=== PATIENT | female | born 1945 | race Caucasian/White ===

== ENCOUNTER 2016-07-23 07:31 | Outpatient (CLI) | payer MEDICARE, OTHER | END 2016-07-23 07:32 | disposition home or self-care (01) | DX: R73.01 Impaired fasting glucose (principal); I10 Essential (primary) hypertension; D64.9 Anemia, unspecified; E78.00 Pure hypercholesterolemia, unspecified ==

== ENCOUNTER 2016-07-24 10:00 | Outpatient (CLI) | payer MEDICARE, OTHER | END 2016-07-24 10:01 | disposition home or self-care (01) | DX: Z12.31 Encounter for screening mammogram for malignant neoplasm of breast (principal) ==

== ENCOUNTER 2016-08-14 17:12 | Observation (INO) | payer MEDICARE, OTHER ==
[2016-08-14] MEDS ORDERED: ASPIRIN CHEW 81 MG TABLET PO STA (17:39)
[2016-08-14] MEDS ORDERED: ASPIRIN CHEW 81 MG TABLET ONE ×2 (17:42→17:43)
[2016-08-14] MEDS ORDERED: LIDOCAINE VISCOUS 2% 15 ML UDC MM STA (18:14)
[2016-08-14] MEDS ORDERED: MAG HYDROX/AL HYDROX/SIMETH 30 ML UDC PO STA (18:14)
[2016-08-14] MEDS ORDERED: MAG HYDROX/AL HYDROX/SIMETH 30 ML UDC ONE (18:15)
[2016-08-14] MEDS ORDERED: LIDOCAINE VISCOUS 2% 15 ML UDC MM ONE (18:15)
[2016-08-14] MEDS ORDERED: AMITRIPTYLINE 10 MG TABLET PO PRN (20:41)
[2016-08-14] MEDS ORDERED: MORPHINE 2 MG/ML SYRINGE IVP PRN (20:42)
[2016-08-14] MEDS ORDERED: ACETAMINOPHEN 325 MG TABLET PO PRN (20:42)
[2016-08-14] MEDS ORDERED: HYDROcod/ACETAM 5/325 MG TABLET PO PRN (20:42)
[2016-08-14] MEDS ORDERED: ONDANSETRON 4 MG/2 ML VIAL IVP PRN (20:42)
[2016-08-14] MEDS ORDERED: PROCHLORPERAZINE 10 MG/2 ML VIAL IVP PRN (20:42)
[2016-08-14] MEDS ORDERED: SODIUM CHLORIDE FLUSH 0.9% 10 ML SYRINGE IVP PRN (20:42)
[2016-08-14] MEDS ORDERED: NITROGLYCERIN SL 0.4 MG TABLET SL PRN (20:42)
[2016-08-14] MEDS ORDERED: LATANOPROST 0.005% OPHTH DROPS EACHEYE SCH ×2 (21:00→22:17)
[2016-08-14] MEDS ORDERED: ATORVASTATIN 40 MG TABLET PO SCH (21:00)
[2016-08-14] MEDS: SODIUM CHLORIDE FLUSH 0.9% 10 ML SYRINGE IVP SCH (22:14)
[2016-08-15] MEDS: SODIUM CHLORIDE FLUSH 0.9% 10 ML SYRINGE IVP SCH (06:32)
[2016-08-15] MEDS ORDERED: PANTOPRAZOLE 40 MG TABLET PO SCH (07:00)
[2016-08-15] MEDS: INDAPAMIDE 2.5 MG TABLET PO SCH (08:14)
[2016-08-15] MEDS ORDERED: ASPIRIN EC 81 MG TABLET PO SCH (09:00)
[2016-08-15] MEDS ORDERED: LISINOPRIL 5 MG TABLET PO SCH (09:00)
[2016-08-15] MEDS ORDERED: POLYETHYLENE GLYCOL 3350 17 GM PACKET PO SCH (09:00)
[2016-08-15] MEDS ORDERED: ENOXAPARIN 40 MG/0.4 ML SYRINGE SUBQ SCH (12:00)
== END 2016-08-15 14:00 | disposition home or self-care (01) ==
DX: R07.89 Other chest pain (principal); I10 Essential (primary) hypertension; E78.5 Hyperlipidemia, unspecified; Z79.82 Long term (current) use of aspirin; Z82.49 Family history of ischemic heart disease and other diseases of the circulatory system; Z79.899 Other long term (current) drug therapy
CPT/HCPCS: 36415; 71010; 80048; 80053; 80061; 83036; 83690; 83721; 84484; 85025; 93005; 93010; 93306; 99284; 99285; A9270; G0378

== ENCOUNTER 2017-01-17 10:17 | Outpatient (CLI) | payer MEDICARE, OTHER ==
--- NOTE | 2017-01-17 12:40 | XRAY Report ---
THREE-VIEW RIGHT FOOT: 01/17/2017 CLINICAL INDICATION: Pain. FINDINGS: AP, lateral, oblique views of the right foot demonstrate moderate osteoarthritis of the fi rst metatarsophalangeal joint with hallux valgus. Osteoarthritis is also seen in the interphalangeal joints. No definite acute fracture is identified. No dislocation is seen. No foreign body is pres ent. IMPRESSION: OSTEOARTHRITIS, WITH HALLUX VALGUS. JOB #: [id number] EXT JOB #:[id number]
== END 2017-01-17 10:18 | disposition home or self-care (01) ==
LOC: DI 10:17
PROVIDERS: ATTEND Podiatrist
DX: M19.071 Primary osteoarthritis, right ankle and foot (principal); M20.11 Hallux valgus (acquired), right foot

== ENCOUNTER 2017-01-23 14:14 | Outpatient (CLI) | payer MEDICARE, OTHER ==
[2017-01-23 12:56] LABS: BASOPHILS % (AUTO) 0.9 %; EOSINOPHILS # (AUTO) 0.1 10^3/uL (0.0-0.7); EOSINOPHILS % (AUTO) 2.5 %; HCT - HEMATOCRIT 36.2 % (37.0-47.0); HGB - HEMOGLOBIN 12.5 g/dL (12.0-16.0); LYMPHOCYTES # (AUTO) 1.1 10^3/uL (1.5-3.5); MEAN CORPUSCULAR HEMOGLOBIN 33.1 pg (27.0-31.0); MEAN CORPUSCULAR HGB CONC 34.6 g/dL (32.0-36.0); MEAN CORPUSCULAR VOLUME 95.8 fL (81.0-99.0); MEAN PLATELET VOLUME 7.1 fL (7.9-10.8); MONOCYTES # (AUTO) 0.4 10^3/uL (0.0-1.0); MONOCYTES % (AUTO) 13.9 %; NEUTROPHILS # (AUTO) 1.4 10^3/uL (1.5-6.6); NEUTROPHILS % (AUTO) 45.7 %; NUCLEATED RED BLOOD CELLS AUTO 0.2 /100WBC; RED BLOOD COUNT 3.78 10^6/uL (4.20-5.40); RED CELL DISTRIBUTION WIDTH 13.9 % (12.0-15.0); UNCORRECTED WHITE BLOOD COUNT 3.1 x10^3/uL; WHITE BLOOD COUNT 3.1 x10^3/uL (4.8-10.8)
[2017-01-23 13:26] LABS: ALBUMIN/GLOBULIN RATIO 1.6 (1.0-2.2); BILIRUBIN,TOTAL 0.8 mg/dL (0.2-1.0); BUN - BLOOD UREA NITROGEN 14 mg/dL (6-20); CALCIUM 9.2 mg/dL (8.5-10.3); CARBON DIOXIDE - CO2 31 mmol/L (21-32); CHLORIDE 98 mmol/L (101-111); CHOL/HDL RATIO 2.2 (<4.4); CHOLESTEROL 232 mg/dL; CREATININE 0.7 mg/dL (0.4-1.0); GFR - MDRD 82 (>89); GLUCOSE 92 mg/dL (70-100); HDL CHOLESTEROL 106 mg/dL; HEMOGLOBIN A1C 0.45 g/dL; LDL/HDL RATIO 1.1 (<4.4); POTASSIUM 3.8 mmol/L (3.5-5.0); SODIUM 137 mmol/L (135-145); TOTAL PROTEIN 6.6 g/dL (6.7-8.2); TRIGLYCERIDES 41 mg/dL; VLDL CHOLESTEROL 8 mg/dL
== END 2017-01-23 14:15 | disposition home or self-care (01) ==
LOC: LAB.WCP 14:14
PROVIDERS: ATTEND Family Medicine
DX: R73.01 Impaired fasting glucose (principal); I10 Essential (primary) hypertension; D64.9 Anemia, unspecified; E77.8 Other disorders of glycoprotein metabolism; E78.00 Pure hypercholesterolemia, unspecified
CPT/HCPCS: 36415; 80053; 80061; 83036; 85025

== ENCOUNTER 2017-06-10 09:27 | Outpatient (CLI) | payer MEDICARE, OTHER | END 2017-06-10 09:28 | disposition home or self-care (01) | LOC: LAB.WCP 09:27 | PROVIDERS: ATTEND Family Medicine | DX: N39.0 Urinary tract infection, site not specified (principal) | CPT/HCPCS: 87086 ==

== ENCOUNTER 2017-06-11 20:05 | Emergency (ER) | payer MEDICARE, OTHER ==
[2017-06-11 20:48] LABS: BILIRUBIN,URINE NEGATIVE (NEGATIVE); GLUCOSE, URINE (UA) NEGATIVE (NEGATIVE); KETONES,URINE (UA) NEGATIVE (NEGATIVE); LEUKOCYTE ESTERASE, URINE NEGATIVE (NEGATIVE); NITRITE,URINE NEGATIVE (NEGATIVE); OCCULT BLOOD,URINE LARGE (NEGATIVE); PH,URINE 7.5 PH (5.0-7.5); PROTEIN,URINE NEGATIVE (NEGATIVE); UROBILINOGEN,URINE 0.2 (NORMAL) E.U./dL (NORMAL)
[2017-06-11 20:52] LABS: CLARITY,URINE CLEAR (CLEAR)
[2017-06-11 20:58] LABS: BACTERIA,URINE None Seen /HPF (None Seen); RBC,URINE TNTC /HPF (0-5); SQUAMOUS EPITHELIAL CELL,UR NONE SEEN (<= Few)
--- NOTE | 2017-06-11 22:30 | ED Physician Documentation ---
History of Present Illness - Stated complaint Stated Complaint: FEMALE - Chief complaint Chief Complaint: General - History obtained from History obtained from: Patient - History of Present Illness Timing: Today Pain level now: 0 Improved by: no ameliorating factors Worsened by: no exacerbating factors - Additonal information Additional information: seen by PMD yesterday for UTI symptoms (urinary frequency, burning dysuria) and prescribed an antibiotic. Subsequently she developed vaginal bleeding which she initially thought might be blood in her urine but today and tonight she has had increasing amounts of blood and tonight had clots, and she is confident the bleeding is vaginal, and it has not been associated with urination. Review of Systems Constitutional: denies: Fever, Chills, Sweats Respiratory: denies: Dyspnea GI: denies: Abdominal Pain, Abdominal Swelling, Nausea, Vomiting, Constipation, Diarrhea : reports: Dysuria, Frequency, Hematuria PD PAST MEDICAL HISTORY - Past Medical History Past Medical History: Yes Cardiovascular: Hypertension, High cholesterol Respiratory: None Neuro: None Endocrine/Autoimmune: None GI: None SOFTWARE APPLICATIONS ARCHITECT: None : None HEENT: Glaucoma Psych: None, Anxiety Musculoskeletal: None Derm: None - Past Surgical History Past Surgical History: Yes /SOFTWARE APPLICATIONS ARCHITECT: Hysterectomy - Present Medications Home Medications: Ambulatory Orders Medication Instructions Recorded Confirmed Amitriptyline [Elavil] 10 - 20 mg PO QPM 03/09/14 08/15/16 Ascorbic Acid [Vitamin C] 1,000 mg PO DAILY 03/09/14 08/14/16 Calcium Carbonate/Vitamin D3 4 tab PO DAILY 03/09/14 08/14/16 [Calcium 600-Vit D3 200 Tablet] Cholecalciferol (Vitamin D3) 1,000 unit PO DAILY 03/09/14 08/14/16 [Vitamin D] Indapamide 0.625 mg PO DAILY 03/09/14 08/15/16 Lisinopril 10 mg PO DAILY 03/09/14 08/14/16 [place]-3 Fatty Acids [Fish Oil] 900 mg PO DAILY 03/09/14 08/14/16 Simvastatin [Zocor] 10 mg PO QPM 03/09/14 08/15/16 Vitamin B Complex 1 each PO DAILY 03/09/14 08/14/16 Latanoprost 0.005% Ophth Drops 1 drop EACHEYE QPM 06/28/15 04/26/17 [Xalatan Ophth Drops] Aspirin [Aspirin EC] 81 mg PO DAILY 08/15/16 08/15/16 - Allergies Allergies/Adverse Reactions: Allergies Allergy/AdvReac Type Severity Reaction Status Date / Time hydromorphone HCl * Allergy Intermediate Rash Verified 08/14/16 17:17 [From Dilaudid] iodine Allergy Intermediate Rash Verified 08/14/16 17:17 - Social History Does the pt smoke?: No Smoking Status: Never smoker Does the pt drink ETOH?: Yes Does the pt have substance abuse?: No - Immunizations Immunizations are current?: Yes PD ED PE NORMAL - Vitals Vital signs reviewed: Yes - General General: Alert and oriented X 3, No acute distress, Well developed/nourished - Abdomen Abdomen: Soft, Non tender, Non distended, No organomegaly - Back Back: No CVA TTP - Derm Derm: Normal color, Warm and dry PD ED PE EXPANDED - Female Female : Normal exam, Clinical Project Coordinator present. No: Skin lesions, Vaginal Bleeding ( no active bleeding seen. there is a very trace amount of dried blood externally (on labia majora).), Vaginal Discharge Results - Vitals Vitals: Oxygen O2 Source Room air - Labs Labs: Laboratory Tests 06/11/17 06/11/17 06/11/17 20:22 23:27 23:27 WBC 5.9 RBC 3.95 L Hgb 12.9 Hct 37.3 MCV 94.4 MCH 32.6 H MCHC 34.6 RDW 13.5 Plt Count 258 MPV 6.7 L Neut # 3.4 Lymph # 1.6 [place] # 0.7 Eos # 0.1 Baso # 0.0 Absolute Nucleated RBC 0.00 Nucleated RBC % 0.0 Sodium 131 L Potassium 3.6 Chloride 90 L Carbon Dioxide 27 Anion Gap 14.0 H BUN 13 Creatinine 0.6 Estimated GFR (MDRD) 98 Glucose 90 Calcium 9.2 Urine Color LT RED Urine Clarity CLEAR Urine pH 7.5 Ur Specific [place] <=1.005 Urine Protein NEGATIVE Urine Glucose (UA) NEGATIVE Urine Ketones NEGATIVE Urine Occult Blood LARGE H Urine Nitrite NEGATIVE Urine Bilirubin NEGATIVE Urine Urobilinogen 0.2 (NORMAL) Ur Leukocyte Esterase NEGATIVE Urine RBC TNTC H Urine WBC 4-5 Ur Squamous Epith Cells NONE SEEN Urine Bacteria None Seen Ur Microscopic Review INDICATED Urine Culture Comments NOT INDICATED - Rads (name of study) CT A/P Radiology: Prelim report reviewed, See rad report PD MEDICAL DECISION MAKING - ED course Complexity details: reviewed results, re-evaluated patient, considered differential, d/w patient ED course: UTI not currently suggestive of UTI, although this might be due to partially treated UTI (has had 2 full days thus far, took the second dose of day 2 of BID dosing earlier tonight; does not recall which antibiotic it is). She has had a hysterectomy and is less concerned about the amount of blood than the potential source such as malignancy. Pelvic exam only shows mild urethral prolapse but no active bleeding/source. CT A/P and results and nondiagnostic but reassuring. The bleeding might be coming from UTI and clotting up with subsequent passage not associated with sensation of urination due to urethral prolapse. However, if the source is vaginal, there is no evidence of a source at this time. Instructed to f/u with PMD for reevaluation, possible further testing. Departure - Departure Disposition: 01 Home, Self Care Clinical Impression: Postmenopausal vaginal bleeding Condition: Good Instructions: ED Hematuria Follow-Up: Ton Magdaleno MD [Primary Care Provider] - Discharge Date/Time: 06/12/17 02:06
[2017-06-11] MEDS ORDERED: IOPAMIDOL-300 100 ML VIAL ONE (23:31)
[2017-06-11 23:34] LABS: BASOPHILS % (AUTO) 0.5 %; EOSINOPHILS # (AUTO) 0.1 10^3/uL (0.0-0.7); HGB - HEMOGLOBIN 12.9 g/dL (12.0-16.0); LYMPHOCYTES # (AUTO) 1.6 10^3/uL (1.5-3.5); LYMPHOCYTES % (AUTO) 27.7 %; MEAN CORPUSCULAR HEMOGLOBIN 32.6 pg (27.0-31.0); MEAN CORPUSCULAR HGB CONC 34.6 g/dL (32.0-36.0); MEAN CORPUSCULAR VOLUME 94.4 fL (81.0-99.0); MEAN PLATELET VOLUME 6.7 fL (7.9-10.8); MONOCYTES # (AUTO) 0.7 10^3/uL (0.0-1.0); MONOCYTES % (AUTO) 11.8 %; NEUTROPHILS # (AUTO) 3.4 10^3/uL (1.5-6.6); PLT - PLATELET COUNT 258 10^3/uL (130-450); RED BLOOD COUNT 3.95 10^6/uL (4.20-5.40); RED CELL DISTRIBUTION WIDTH 13.5 % (12.0-15.0); WHITE BLOOD COUNT 5.9 x10^3/uL (4.8-10.8)
[2017-06-11 23:42] LABS: CALCIUM 9.2 mg/dL (8.5-10.3); CREATININE 0.6 mg/dL (0.4-1.0)
[2017-06-12] MEDS ORDERED: IOPAMIDOL-300 100 ML VIAL IVP ONE (00:21)
--- NOTE | 2017-06-12 00:55 | CT Preliminary Report ---
Exam: CT ABDOMEN/PELVIS W/ IMPRESSION: 1. Status post hysterectomy. No pelvic mass or adenopathy. Small amount of free fluid in the pelvis. 2. Moderate to large amount of stool in the colon. No focal transition. Remainder of the bowel is unr emarkable. [facility] SITE ID: [id number]
--- NOTE | 2017-06-12 01:23 | CT Report ---
EXAM: CT ABDOMEN AND PELVIS EXAM DATE: 06/12/2017 12:24 AM. CLINICAL HISTORY: Pelvic pain, vaginal bleeding. COMPARISONS: None. TECHNIQUE: Routine helical CT imaging was performed through the abdomen and pelvis. IV contrast: 100 mL Isovue 300. Enteric contrast: No. Reconstructions: Coronal and sagittal. In accordance with CT protocol optimization, one or more of the following dose reduction techniques w ere utilized for this exam: automated exposure control, adjustment of mA and/or KV based on patient s ize, or use of iterative reconstructive technique. FINDINGS: Lung Bases: Unremarkable. Liver: Multiple small hypodense cystic structures too small to characterize but most likely represent ing benign cysts. Gallbladder/Bile Ducts: Unremarkable. Spleen: Normal. Pancreas: Normal. Adrenal Glands: Normal. Kidneys: Normal. No masses or hydronephrosis. Peritoneal Cavity/Bowel: At least moderate amount stool is present throughout colon. Small amount of nonloculated fluid is present in the abdomen and pelvis. No adenopathy, pneumatosis, pneumoperitoneum or portal venous gas. Appendix is not seen. No focal right lower quadrant inflammation. Pelvic Organs: Uterus is absent. Normal bladder. No pelvic mass or adenopathy. Small amount of non-lo culated fluid is noted in the pelvis. Vasculature: No aneurysms or other significant abnormality. Bones: No significant abnormality. Other: None. IMPRESSION: 1. Status post hysterectomy. No pelvic mass or adenopathy. Small amount of free fluid in the pelvis. 2. Moderate to large amount of stool in the colon. No focal transition. Remainder of the bowel is unr emarkable. [facility] Referring Provider Line: [phone] SITE ID: [id number]
[2017-06-12 01:38] VITALS: BP 142/74
== END 2017-06-12 02:06 | disposition home or self-care (01) ==
LOC: ED 20:05
DX: N95.0 Postmenopausal bleeding (principal); I10 Essential (primary) hypertension; E78.00 Pure hypercholesterolemia, unspecified
CPT/HCPCS: 36415; 74177; 80048; 81001; 85025; 99283; 99284; Q9967; 81003; 87086

== ENCOUNTER 2017-07-19 08:00 | Outpatient (CLI) | payer MEDICARE, OTHER | END 2017-07-19 08:01 | disposition home or self-care (01) | LOC: LAB.WCP 08:00 | PROVIDERS: ATTEND Family Medicine | DX: N39.0 Urinary tract infection, site not specified (principal) | CPT/HCPCS: 87086 ==

== ENCOUNTER 2017-07-24 10:28 | Outpatient (CLI) | payer MEDICARE, OTHER ==
--- NOTE | 2017-07-29 08:14 | Mammography Report ---
DIGITAL SCREENING MAMMOGRAM: 07/24/2017 HISTORY: Asymptomatic. TECHNIQUE: Bilateral digital CC, exaggerated CC, and MLO projections. COMPARISON: 07/24/2016, 08/16/2015, 02/17/2014, 07/31/2012, 07/27/2011 and . FINDINGS: The breast tissue is heterogeneously dense. There is no dominant mass, architectural distortion, skin thickening, clustered suspicious microcalcifications or obvious interval change. IMPRESSION: NEGATIVE. BI-RADS CATEGORY 1 - NEGATIVE. SUGGEST RETURN TO ROUTINE SCREENING IN 12 MONTHS. STANDARD QUALIFYING STATEMENTS 1. This examination was reviewed with the aid of Computer-Aided Detection (CAD) . 2. A negative or benign imaging report should not delay biopsy if clinically suspicious findings are present. Consider surgical consultation if warranted. More than 5 % of cancers are not identified by imaging. 3. Dense breasts may obscure an underlying neoplasm. TD: 07/29/2017 08:12 [place]
== END 2017-07-24 10:29 | disposition home or self-care (01) ==
LOC: DI.N 10:28
PROVIDERS: ATTEND Family Medicine
DX: Z12.31 Encounter for screening mammogram for malignant neoplasm of breast (principal)
CPT/HCPCS: 77067

== ENCOUNTER 2017-08-19 08:00 | Outpatient (CLI) | payer MEDICARE, OTHER | END 2017-08-19 08:01 | disposition home or self-care (01) | LOC: LAB.WCP 08:00 | PROVIDERS: ATTEND Family Medicine | DX: N39.0 Urinary tract infection, site not specified (principal) | CPT/HCPCS: 87086 ==

== ENCOUNTER 2018-06-06 08:50 | Outpatient (CLI) | payer MEDICARE, OTHER ==
--- NOTE | 2018-06-06 14:13 | XRAY Report ---
Reason: 2CM BONY HARD EXOPHTENT MANUBRIOCLAVIR JUNCTION R Procedure Date: 06/06/2018 Accession Number: [id number] / [id number] Procedure: XR - SC Joints CPT Code: FULL RESULT: EXAM: SC JOINT RADIOGRAPHY EXAM DATE: 06/06/2018 09:10 AM. CLINICAL HISTORY: Palpable lump. COMPARISON: None. TECHNIQUE: 3 views. FINDINGS: Bones: History is understanding more definite fracture or other bone lesion. Unremarkable sternoclavicular joints. Soft Tissues: The visualized lungs are clear. IMPRESSION: Negative study. [facility]
== END 2018-06-06 08:51 | disposition home or self-care (01) ==
LOC: DI 08:50
PROVIDERS: ATTEND Internal Medicine
DX: M89.8X8 Other specified disorders of bone, other site (principal)
CPT/HCPCS: 71130

== ENCOUNTER 2018-08-21 12:16 | Outpatient (CLI) | payer MEDICARE, OTHER ==
--- NOTE | 2018-08-21 13:36 | Mammography Report ---
Reason: SCREENING MAMMO Procedure Date: 08/21/2018 Accession Number: [id number] / [id number] Procedure: MGN - Screening Mammo Dig Bilat CPT Code: FULL RESULT: EXAM: Screening Mammo Dig Bilat DATE: 08/21/2018 12:43 PM CLINICAL HISTORY: Routine screening TECHNIQUE: (B) - Bilateral CC and MLO views were obtained. COMPARISON: 07/24/2017, 07/24/2016, 08/16/2015 and 02/17/2014. PARENCHYMAL PATTERN: (D) - The breasts demonstrate heterogeneously dense fibroglandular parenchyma bilaterally. FINDINGS: There is no significant interval change. There are no suspicious masses, calcifications, or areas of distortion. IMPRESSION: Negative examination. BI-RADS category 1. RECOMMENDATION: (ANNUAL) - Recommend routine annual screening mammography. BI-RADS CATEGORY: (1) - Negative. STANDARD QUALIFYING STATEMENTS: 1. This examination was not reviewed with the aid of Computer-Aided Detection (CAD). 2. A negative or benign imaging report should not preclude biopsy if clinically suspicious findings are present. 3. Dense breasts may obscure an underlying neoplasm. 4. This examination was reviewed without the aid of 3D breast imaging (tomosynthesis).
== END 2018-08-21 12:17 | disposition home or self-care (01) ==
LOC: DI.N 12:16
DX: Z12.31 Encounter for screening mammogram for malignant neoplasm of breast (principal)
CPT/HCPCS: 77067

== ENCOUNTER 2018-12-12 09:51 | Outpatient (CLI) | payer MEDICARE, OTHER ==
--- NOTE | 2018-12-12 16:40 | DEXA Report ---
Reason: ENCOUNTER FOR SCREENING FOR OSTEOPOROSIS,MENOPAUSE Procedure Date: 12/12/2018 Accession Number: [id number] / [id number] Procedure: DEX - Dexa Spine and/or Hip CPT Code: FULL RESULT: EXAM: Dexa Spine and/or Hip DATE: 12/12/2018 10:15 AM CLINICAL HISTORY: ENCOUNTER FOR SCREENING FOR Osteoporosis, menopause TECHNIQUE: Dual energy x-ray absorptiometry (DXA) was performed on a [employer] System. Regions measured are the AP Spine, femoral neck, and if needed forearm. COMPARISON: None. In accordance with the International Society for Clinical Densitometry (ISCD) guidelines, data from previous exams may be reanalyzed using current recommendations and techniques. This is done to allow a more accurate basis for comparison with the current study. FINDINGS: The data for the lumbar spine is as follows: BMD (g/cm/cm) T-SCORE Z-SCORE REGION L1 1.053 -0.6 1.6 L2 1.298 0.8 3.0 L3 1.353 1.3 3.5 L4 1.620 3.5 5.7 TOTAL 1.355 1.5 3.7 NOTE: All evaluable vertebrae are used for classification The data for the hip is as follows: BMD (g/cm/cm) T-SCORE Z-SCORE REGION Neck 0.943 -0.7 1.6 TOTAL 0.980 -0.2 1.9 NOTE: The femoral neck or total proximal femur, whichever is lowest, is used for classification. IMPRESSION: THE WHO CLASSIFICATION BASED ON THE INTERNATIONAL REFERENCE STANDARD IS NORMAL. THE FRACTURE RISK IS NOT INCREASED. RECOMMENDATION: Patients with diagnosis of osteoporosis or osteopenia should have regular bone mineral density assessment. For those eligible for Medicare, routine testing is allowed once every 2 years. Testing frequency can be increased for patients who have rapidly progressing disease or for those who are receiving medical therapy to restore bone mass. COMMENT: World Health Organization (WHO) definitions for osteoporosis and osteopenia: NORMAL BMD: T-score at -1.0 or higher, fracture risk is low OSTEOPENIA BMD: T-score between -1.0 and -2.5, fracture risk is increased. OSTEOPOROSIS BMD: T-score at -2.5 or lower, fracture risk is high. National Osteoporosis Foundation recommends: 1. Obtain adequate dietary calcium (at least 1200 mg per day) and vitamin D (400-800 international units per day). 2. Participate, as appropriate, in regular weightbearing and muscle-strengthening exercise. 3. Avoid tobacco use and reduce alcohol and caffeine intake. 4. For more detailed information see the website at www.NOF.org.
== END 2018-12-12 09:52 | disposition home or self-care (01) ==
LOC: DI 09:51
PROVIDERS: ATTEND Family Medicine
DX: Z13.820 Encounter for screening for osteoporosis (principal); Z78.0 Asymptomatic menopausal state
CPT/HCPCS: 77080

== ENCOUNTER 2019-10-30 10:43 | Outpatient (CLI) | payer MEDICARE, OTHER ==
--- NOTE | 2019-11-03 15:11 | Mammography Report ---
BILATERAL DIGITAL SCREENING MAMMOGRAM 3D/2D: 10/30/2019 CLINICAL: Routine screening. Comparison is made to exams dated: 08/21/2018 mammogram, 07/24/2017 mammogram, and 07/24/2016 mammogram - [facility]. The tissue of both breasts is predominantly fatty. No significant masses, calcifications, or other findings are seen in either breast. There has been no significant interval change. IMPRESSION: NEGATIVE There is no mammographic evidence of malignancy. A 1 year screening mammogram is recommended. This exam was interpreted at Station ID: [id number]. NOTE: For mammograms, a report in lay terms will be sent to the patient. Approximately 15% of breast malignancies will not be visualized mammographically. In the management of a palpable breast mass, a negative mammogram must not discourage biopsy of a clinically suspicious lesion. Electronically Signed By: Yahir Eid M.D., jr/jessica:11/02/2019 08:58:17 ACR BI-RADS Category 1: Negative 3341F PARENCHYMAL PATTERN: (F) - The breast(s) demonstrate(s) diffuse fatty replacement. BI-RADS CATEGORY: (1) - 1 RECOMMENDATION: (ANNUAL) - Recommend routine annual screening mammography. [id number] 1 year screening LATERALITY: (B)
== END 2019-10-30 10:44 | disposition home or self-care (01) ==
LOC: DI 10:43
DX: Z12.31 Encounter for screening mammogram for malignant neoplasm of breast (principal)
CPT/HCPCS: 77063; 77067

== ENCOUNTER 2020-03-17 08:32 | Emergency (ER) | payer MEDICARE, OTHER ==
[2020-03-17 09:10] LABS: BILIRUBIN,URINE NEGATIVE (NEGATIVE); GLUCOSE, URINE (UA) NEGATIVE (NEGATIVE); KETONES,URINE (UA) NEGATIVE (NEGATIVE); LEUKOCYTE ESTERASE, URINE SMALL (NEGATIVE); NITRITE,URINE NEGATIVE (NEGATIVE); OCCULT BLOOD,URINE MODERATE (NEGATIVE); PROTEIN,URINE NEGATIVE (NEGATIVE); UROBILINOGEN,URINE 0.2 (NORMAL) E.U./dL (NORMAL)
--- NOTE | 2020-03-17 09:14 | ED Physician Documentation ---
PD HPI FEMALE - Stated complaint Stated Complaint: FEMALE - Chief complaint Chief Complaint: UTI - History obtained from History obtained from: Patient - History of Present Illness Timing - onset: Today Timing - duration: Hours Timing - details: Gradual onset, Still present Associated symptoms: Dysuria, Urinary frequency Similar symptoms before: Diagnosis (UTI) Recently seen: Not recently seen - Additional information Additional information: 74-year-old female with a history of hypertension and glaucoma has developed urinary urgency frequency and dysuria this morning. She states that she did feel a little bit off yesterday but did not have other symptoms. She denies any nausea fever or back pain. Review of Systems Constitutional: denies: Fever, Chills, Myalgias Eyes: denies: Decreased vision Ears: denies: Ear pain Nose: denies: Congestion Throat: denies: Sore throat Cardiac: denies: Chest pain / pressure Respiratory: denies: Dyspnea, Cough GI: denies: Abdominal Pain, Nausea, Vomiting, Constipation, Diarrhea : reports: Dysuria, Frequency. denies: Hematuria Skin: denies: Rash Musculoskeletal: denies: Neck pain, Back pain, Extremity pain PD PAST MEDICAL HISTORY - Past Medical History Cardiovascular: Hypertension, High cholesterol Respiratory: None Endocrine/Autoimmune: None GI: None MOLDER PIPE COVERING: None : None HEENT: Glaucoma Psych: None, Anxiety Musculoskeletal: None Derm: None - Past Surgical History Past Surgical History: Yes /MOLDER PIPE COVERING: Hysterectomy - Present Medications Home Medications: Ambulatory Orders Medication Instructions Recorded Confirmed Amitriptyline [Elavil] 10 - 20 mg PO QPM 03/09/14 08/15/16 Ascorbic Acid [Vitamin C] 1,000 mg PO DAILY 03/09/14 08/14/16 Cholecalciferol (Vitamin D3) 1,000 unit PO DAILY 03/09/14 08/14/16 [Vitamin D] Indapamide 0.625 mg PO DAILY 03/09/14 08/15/16 [place]-3 Fatty Acids [Fish Oil] 900 mg PO DAILY 03/09/14 08/14/16 Vitamin B Complex 1 each PO DAILY 03/09/14 08/14/16 lisinopriL [Lisinopril] 10 mg PO DAILY 03/09/14 08/14/16 Latanoprost 0.005% Ophth Drops 1 drop EACHEYE QPM 10/17/14 08/15/16 [Xalatan Ophth Drops] Latanoprost 0.005% Ophth Drops 1 drops DAILY 03/17/20 03/17/20 [Xalatan Ophth Drops] Sulfamethox/Trimeth 800/160 1 each PO BID #14 tablet 03/17/20 [Bactrim Ds] - Allergies Allergies/Adverse Reactions: Allergies Allergy/AdvReac Type Severity Reaction Status Date / Time hydromorphone HCl * Allergy Intermediate Rash Verified 03/17/20 08:47 [From Dilaudid] iodine Allergy Intermediate Rash Verified 03/17/20 08:47 - Social History Does the pt smoke?: No Smoking Status: Never smoker Does the pt drink ETOH?: Yes Does the pt have substance abuse?: No - Immunizations Immunizations are current?: Yes - POLST Patient has POLST: No PD ED PE NORMAL - Vitals Vital signs reviewed: Yes (Hypertensive mild) - General General: Alert and oriented X 3, No acute distress, Well developed/nourished - HEENT HEENT: Atraumatic, PERRL, EOMI - Respiratory Respiratory: No respiratory distress - Back Back: No CVA TTP, No spinal TTP - Derm Derm: Normal color, Warm and dry, No rash - Extremities Extremities: No deformity, No edema - Neuro Neuro: Alert and oriented X 3, 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 CLOUDY Urine pH 7.0 Ur Specific [place] 1.015 Urine Protein NEGATIVE Urine Glucose (UA) NEGATIVE Urine Ketones NEGATIVE Urine Occult Blood MODERATE H Urine Nitrite NEGATIVE Urine Bilirubin NEGATIVE Urine Urobilinogen 0.2 (NORMAL) Ur Leukocyte Esterase SMALL H Urine RBC 6-10 H Urine WBC >25 H Ur Squamous Epith Cells NONE SEEN Urine Bacteria Rare Ur Microscopic Review INDICATED Urine Culture Comments INDICATED PD MEDICAL DECISION MAKING - ED course Complexity details: reviewed results, re-evaluated patient, considered differential, d/w patient ED course: Looks like a UTI otherwise uncomplicated with the patient not appearing ill. Departure - Departure Disposition: 01 Home, Self Care Clinical Impression: Urinary tract infection Qualifiers: Urinary tract infection type: acute cystitis Hematuria presence: with hematuria Qualified Code(s): N30.01 - Acute cystitis with hematuria Instructions: ED UTI Cystitis Female Follow-Up: Joshua Ariza DO [Primary Care Provider] - Prescriptions: Sulfamethox/Trimeth 800/160 [Bactrim Ds] 1 each PO BID #14 tablet Discharge Date/Time: 03/17/20 09:44
[2020-03-17 09:16] LABS: CLARITY,URINE SL. CLOUDY (CLEAR)
[2020-03-17 09:29] LABS: BACTERIA,URINE Rare /HPF (None Seen); SQUAMOUS EPITHELIAL CELL,UR NONE SEEN (<= Few)
[2020-03-17 09:43] VITALS: BP 136/74
== END 2020-03-17 09:44 | disposition home or self-care (01) ==
LOC: ED 08:32
DX: N30.01 Acute cystitis with hematuria (principal); I10 Essential (primary) hypertension
CPT/HCPCS: 81001; 81003; 87086; 87181; 99283

== ENCOUNTER 2020-04-29 08:14 | Outpatient (CLI) | payer MEDICARE, OTHER ==
--- NOTE | 2020-04-29 13:14 | MRI Report ---
PROCEDURE: Lumbar Spine W/O INDICATIONS: R LUMBOSACRAL RADICULOPATHY TECHNIQUE: Noncontrast sagittal T1 spin echo and T2 fast echo, coronal T2, sagittal STIR, axial T1 and T2 fast s pin echo through the lumbar spine. COMPARISON: CT examination dated 06/12/2017 FINDINGS: Image quality: Excellent. Alignment and Curvature: 5 lumbar type vertebral bodies are present by CT. There is mild, grade 1 ret rolisthesis of L2 on L3. Mild grade 1 anterolisthesis of L4 on L5. Bone Marrow: Marrow is diffusely heterogeneous. No acute vertebral body compression fractures. Ther e is moderate reactive signal within the end plates adjacent to the L4-L5 intervertebral disc. Mild r eactive signal within the end plates adjacent to the T11-12, L2-L3, L3-L4, and L5-S1 intervertebral d iscs. Spinal Cord: Conus medullaris terminates at the mid L2 level. Visualized cord demonstrates normal s ignal and size. Paraspinous Soft Tissues: No paravertebral masses. T12-L1: Mild disc height loss and desiccation. Mild facet and ligament flavum hypertrophy. No signif icant canal, nor foraminal stenosis. L1-L2: Mild disc desiccation. Mild facet and ligament flavum hypertrophy. Mild canal stenosis. Mil d bilateral foraminal stenosis. L2-L3: Moderate disc height loss and desiccation. Mild diffuse disc bulge. Mild facet and ligament flavum hypertrophy. Mild epidural lipomatosis. Mild canal stenosis. Mild left greater than right for aminal stenosis. L3-L4: Moderate disc height loss and desiccation. Mild diffuse disc bulge. Moderate facet and ligam ent flavum hypertrophy. Mild epidural lipomatosis. Severe canal stenosis. Mild bilateral foraminal st enosis. L4-L5: Moderate disc height loss and desiccation. Moderate diffuse disc bulge. Moderate facet and l igament flavum hypertrophy. Severe canal stenosis. Severe right and moderate left foraminal stenosis. Right L4 nerve root compression. L5-S1: Moderate disc height loss and desiccation. Mild diffuse disc bulge with superimposed central protrusion. Moderate bilateral facet hypertrophy. Moderate canal stenosis. Severe left and moderate right foraminal stenosis. IMPRESSION: 1. Multilevel degenerative disc and facet disease, in addition to epidural lipomatosis and ligamentum flavum hypertrophy. 2. Multilevel canal stenoses, worst at L3-L4 and L4-L5, where there are severe canal stenoses present . 3. Multilevel foraminal stenoses, worst at L4-L5 and L5-S1 where there is associated intraforaminal n erve root compression as described above. Recommend correlation with clinical symptoms to ascertain r elevance of these findings. Reviewed by: Padmini Westfall MD on 04/29/2020 1:13 PM PST Approved by: Padmini Westfall MD on 04/29/2020 1:13 PM PST Station ID: [id number]
== END 2020-04-29 08:15 | disposition home or self-care (01) ==
LOC: DI 08:14
PROVIDERS: ATTEND Family Medicine
DX: M51.16 Intervertebral disc disorders with radiculopathy, lumbar region (principal); M48.061 Spinal stenosis, lumbar region without neurogenic claudication
CPT/HCPCS: 72148

== ENCOUNTER 2020-11-14 07:00 | Outpatient (CLI) | payer MEDICARE, OTHER ==
--- NOTE | 2020-11-14 17:22 | XRAY Report ---
PROCEDURE: Shoulder 3 View RT INDICATIONS: R SHOULDER PX TECHNIQUE: 3 views of the shoulder were acquired. COMPARISON: None. FINDINGS: Bones: No fractures or dislocations. No suspicious bony lesions. Visualized ribs appear intact. Mi ld acromioclavicular joint and glenoid humeral joint arthritis. Soft tissues: No suspicious soft tissue calcifications. IMPRESSION: Mild osteoarthritis. Reviewed by: Margarita Perez MD, PhD on 11/14/2020 5:21 PM PDT Approved by: Margarita Perez MD, PhD on 11/14/2020 5:21 PM PDT Station ID: [id number]
== END 2020-11-14 23:59 | disposition home or self-care (01) ==
LOC: DI.N 07:00
PROVIDERS: ATTEND Family Medicine
DX: M19.011 Primary osteoarthritis, right shoulder (principal)

== ENCOUNTER 2021-10-26 21:00 | Outpatient (CLI) | payer MEDICARE, OTHER | END 2021-10-26 21:01 | disposition short-term general hospital (02) | LOC: EMS 21:00 | DX: U07.1 COVID-19 (principal); R11.0 Nausea | CPT/HCPCS: A0425; A0427 ==

== ENCOUNTER 2021-11-07 13:01 | Outpatient (CLI) | payer MEDICARE, OTHER ==
--- NOTE | 2021-11-08 16:15 | Mammography Report ---
BILATERAL DIGITAL SCREENING MAMMOGRAM 3D/2D: 11/07/2021 CLINICAL: Routine screening. Comparison is made to exams dated: 10/30/2019 mammogram, 08/21/2018 mammogram, 07/24/2017 mammogram, 2016 mammogram, 08/16/2015 mammogram, and 02/17/2014 mammogram - [facility]. The ti ssue of both breasts is heterogeneously dense. This may lower the sensitivity of mammography. No significant masses, calcifications, or other findings are seen in either breast. There has been no significant interval change. IMPRESSION: NEGATIVE There is no mammographic evidence of malignancy. A 1 year screening mammogram is recommended. Based on the Tyrer Cuzick model (a risk assessment model) the patients lifetime risk is 3.7% and her 10 year risk is 0.0%. According to the ACR, ACS, and NCCN guidelines, an annual breast MRI exam magdi g with mammogram is recommended if the patients lifetime risk is 20% or greater. This exam was interpreted at Station ID: [id number]. NOTE: For mammograms, a report in lay terms will be sent to the patient. Approximately 15% of breast malignancies will not be visualized mammographically. In the management of a palpable breast mass, a negative mammogram must not discourage biopsy of a clinically suspicious lesion. Electronically Signed By: Melissa del rio/jessica:11/07/2021 17:04:09 ACR BI-RADS Category 1: Negative 3341F PARENCHYMAL PATTERN: (D) - The breast(s) demonstrate(s) heterogeneously dense fibroglandular kayla sanz. BI-RADS CATEGORY: (1) - 1 RECOMMENDATION: (ANNUAL) - Recommend routine annual screening mammography. [id number] 1 year screening LATERALITY: (B)
== END 2021-11-07 13:02 | disposition home or self-care (01) ==
LOC: DI.N 13:01
PROVIDERS: ATTEND Family Medicine
DX: Z12.31 Encounter for screening mammogram for malignant neoplasm of breast (principal)

== ENCOUNTER 2023-01-03 08:07 | Outpatient (CLI) | payer MEDICARE, OTHER ==
--- NOTE | 2023-01-03 12:54 | DEXA Report ---
PROCEDURE: Dexa Spine and/or Hip INDICATIONS: POST MENOPAUSAL TECHNIQUE: Dual energy x-ray absorptiometry (DXA) was performed on a [employer] System. Regions measur ed are the AP Spine, femoral neck, and if needed forearm. COMPARISON: DEXA 12/12/2018 FINDINGS: Lumbar Spine: Bone Mineral Density 1.184 g/cm/cm,T score 0.2. There has been no statistically significant change i n bone mineral density since the prior study. Left Femoral Neck: Bone Mineral Density 0.883 g/cm/cm, T score -1.1. Left Hip: Bone Mineral Density 0.982 g/cm/cm,T score -0.2. There has been no statistically significant change i n bone mineral density since the prior study. (T score greater or equal to -1.0: NORMAL) (T score from -1.1 to -2.4: OSTEOPENIA) (T score less than or equal to -2.5 to: OSTEOPOROSIS) Impression: By WHO criteria, this patient has low bone density (osteopenia). No statistical interval change in bone minteral density of the lumbar spine. No statistical interval change in bone minteral density of the hip. Patients with diagnosis of osteoporosis or osteopenia should have regular bone mineral density assess ment. For those eligible for Medicare, routine testing is allowed once every 2 years. Testing frequ ency can be increased for patients who have rapidly progressing disease or for those who are receivin g medical therapy to restore bone mass. Reviewed by: Jacky Hein MD on 01/03/2023 12:52 PM PDT Approved by: Jacky Hein MD on 01/03/2023 12:52 PM PDT Station ID: [id number]
== END 2023-01-03 08:08 | disposition home or self-care (01) ==
LOC: DI 08:07
PROVIDERS: ATTEND Internal Medicine
DX: N95.8 Other specified menopausal and perimenopausal disorders (principal); M85.80 Other specified disorders of bone density and structure, unspecified site

== ENCOUNTER 2023-07-15 14:49 | Outpatient (CLI) | payer MEDICARE, OTHER ==
--- NOTE | 2023-07-15 16:00 | Ultrasound Report ---
PROCEDURE: Pelvic Limited INDICATIONS: PELVIC PAIN TECHNIQUE: Real-time transabdominal scanning was performed of the pelvic organs, with image documentation. COMPARISON: CT abdomen and pelvis on June 12, 2017. FINDINGS: Uterus: Hysterectomy. No sonographic abnormality in the reproductive fossa. Ovaries: Surgically absent. Other: No free pelvic fluid. Ultrasound in the bilateral areas of pain in the groins demonstrate no hernia or sonographic abnormality. IMPRESSION: 1.Hysterectomy. No sonographic abnormality in the reproductive fossa. 2.Ultrasound in the bilateral groins demonstrate no hernia or sonographic abnormality. Reviewed by: Julio Olivares MD on 07/15/2023 3:59 PM PDT Approved by: Julio Olivares MD on 07/15/2023 3:59 PM PDT Station ID: [id number]
== END 2023-07-15 14:50 | disposition home or self-care (01) ==
LOC: DI 14:49
PROVIDERS: ATTEND Nurse Practitioner Family
DX: R10.2 Pelvic and perineal pain (principal); R14.0 Abdominal distension (gaseous); Z90.710 Acquired absence of both cervix and uterus

== ENCOUNTER 2023-09-25 15:46 | Outpatient (CLI) | payer MEDICARE, OTHER ==
--- NOTE | 2023-09-26 09:34 | Ultrasound Report ---
PROCEDURE: Carotid Doppler Complete INDICATIONS: TIA TECHNIQUE: Color and pulse Doppler interrogation was performed of both carotid systems, with image documentation and velocity measurements. COMPARISON: None. FINDINGS: Right side: Brachial blood pressure: 128/71 mm Hg. Common carotid artery peak systolic velocity: 67 cm/sec. Internal carotid artery peak systolic velocity: 80 cm/sec. Internal carotid artery end diastolic velocity: 31 cm/sec. External carotid artery peak systolic velocity: 65 cm/sec. ICA/CCA peak systolic ratio: 1.4. Hernandez scale imaging description: Mild atherosclerotic plaque. Percent internal carotid artery stenosis: Less than 50 percent stenosis. Vertebral artery: Flow direction is antegrade. Left side: Brachial blood pressure: 129/64 mm Hg. Common carotid artery peak systolic velocity: 65 cm/sec. Internal carotid artery peak systolic velocity: 90 cm/sec. Internal carotid artery end diastolic velocity: 33 cm/sec. External carotid artery peak systolic velocity: 70 cm/sec. ICA/CCA peak systolic ratio: 1.4. Hernandez scale imaging description: Mild atherosclerotic plaque. Percent internal carotid artery stenosis: Less than 50 percent stenosis. Vertebral artery: Flow direction is antegrade. IMPRESSION: 1. In the right internal carotid artery, there is less than 50 percent stenosis based on peak systoli c velocity criteria. 2. In the left internal carotid artery, there is less than 50 percent stenosis based on peak systolic velocity criteria. 3. Antegrade blood flow within the right vertebral artery. 4. Antegrade blood flow within the left vertebral artery. The estimate of stenosis included in the report of the imaging study was calculated using the [facility]-end orsed standards of carotid artery stenosis. Reviewed by: Yobany Hdz MD on 09/26/2023 9:33 AM PDT Approved by: Yobany Hdz MD on 09/26/2023 9:33 AM PDT Station ID: [id number]
== END 2023-09-25 15:47 | disposition home or self-care (01) ==
LOC: DI 15:46
PROVIDERS: ATTEND Family Medicine
DX: G45.9 Transient cerebral ischemic attack, unspecified (principal)
CPT/HCPCS: 93880